=== PATIENT | male | born 1945 | race Caucasian/White ===

== ENCOUNTER → 2024-03-05 | Outpatient (CLI) | payer MEDICARE, SELFPAY ==
[2024-03-05 15:08] LABS: Absolute Lymphocyte Count 1.98 X10^3/uL (0.83-4.51); Basophil# 0.05 X10^3/uL; Basophil% 0.6 % (0-1); Eosinophil# 0.08 X10^3/uL; Hematocrit 39.6 % (40-54); Hemoglobin 13.4 g/dL (13.0-16.5); Lymphocyte # 1.98 X10^3/ul (0.83-4.51); Lymphocyte % 25.5 % (19-41); Mean Corp Hgb Conc 33.8 g/dL (32-36); Mean Corpuscular Hgb 30.3 pg (27.0-32.0); Mean Corpuscular Volume 89.6 fL (80-94); Mean Platelet Vol. 9.8 fl (6.2-12.0); Monocyte# 0.63 X10^3/uL; Monocyte% 8.1 % (0-10); NRBC Flagged by Analyzer 0 % (0-5); Neutrophil # 5.01 X10^3/uL (2.7-7.7); Neutrophil % 64.5 % (47-70); Platelet Count 176 K/mm3 (150-450); RBC Distribution Width CV 12.3 % (11.6-14.6); RBC Distribution Width SD 40.4 fl (35.1-43.9); Red Blood Count 4.42 M/mm3 (4.6-6.2); White Blood Count 7.8 K/mm3 (4.4-11.0)
[2024-03-05 15:17] LABS: International Normalized Ratio 2.4; Prothrombin Time (Protime)PT. 26.1 SECONDS (11.7-14.9)
[2024-03-05 15:35] LABS: ALB/GLOB Ratio 0.8 RATIO (0.9-2.4); AST(SGOT) 27 U/L (15-37); Alanine Aminotransfer ALT/SGPT 29 U/L (16-61); Albumin, Serum 3.5 g/dL (3.2-5.0); Alkaline Phosphatase 99 U/L (45-117); Anion Gap 6 (5-15); BUN 17 mg/dL (7-18); BUN/Creat Ratio 19.7 RATIO (10-20); Calcium,Total 9.2 mg/dL (8.5-10.1); Chloride 105 mmol/L (98-107); Creatinine, Serum 0.86 mg/dL (0.70-1.30); EST Glomerular Filtration Rate 91 mL/min (>60); Est Glom Filt Rate - Afr Amer 110 mL/min (>60); Globulin 4.4 g/dL (2.2-4.2); Glucose 142 mg/dL (74-106); Potassium 4.1 mmol/L (3.5-5.1); Protein, Total 7.9 g/dL (6.4-8.2); Sodium Level 138 mmol/L (136-145)
== END | disposition home or self-care (01) ==
PROVIDERS: Referring Provider Podiatrist; Visit Provider Podiatrist
DX: L03.116 Cellulitis of left lower limb (principal)
CPT/HCPCS: 36415; 80053; 85025; 85610

== ENCOUNTER → 2024-03-06 | Outpatient (CLI) | payer MEDICARE, SELFPAY | END | disposition home or self-care (01) | PROVIDERS: Referring Provider Podiatrist; Visit Provider Podiatrist | DX: L03.116 Cellulitis of left lower limb (principal) | CPT/HCPCS: 87070; 87075; 87077; 87186; 87205 ==

== ENCOUNTER 2024-03-17 15:10 | Emergency (ER) | payer MEDICARE, SELFPAY ==
[2024-03-17 15:23] VITALS: BP 149/77; PULSE 81; RESP 18; TEMP 36.9; O2SAT 95; BMI 26.3
--- NOTE | 2024-03-17 19:37 | ED.RN ---
RN into room to assess pt. Pt stated, I dont want to tell my story to you and then tell the doctor. Ill just save it for [facility] doctor. RN explained that she is part of the care team and would like to know pt condition so she can properly care for pt. Pt refusing vitals.
--- NOTE | 2024-03-17 20:22 | ED.VIS.LOWEX ---
HPI History of Present Illness Chief Complaint: Lower Extremity Injury Informant: patient Narrative Narrative: Presents for evaluation injury to his left lower extremity. He initially states 13 days ago he had an injury to his left great toe with a wound. He is diabetic. He is followed by Dr. Sharpe. He is started on a week of antibiotics for which he took. He states within 2 days his legs a lot more swollen however during that time he had a fall in the yard injuring his groin and hamstring. He is on warfarin for history of paroxysmal A-fib he has had cardiac history. There was bruising to his inner thigh went up to his scrotum. This is slowly improving. He has seen his podiatry team with Dr. prakash involved also. He is currently on second round of antibiotics with now improving symptoms. He is followed up today was told he can stop the antibiotics as his toe looks better. Slight swelling to his foot. He presents to the ED asking for second opinion if he can continue his antibiotic at least for another 3 days it was plan for 14 days. He has no fevers no drainage. Prior similar symptoms: No PFSH PFSH Home Medications ?Medication ?Instructions ?Recorded ?Last Taken ?Type Cholecalciferol (Vitamin D3) 5,000 unit PO DAILY 03/31/17 Unknown History [Vitamin D3] Losartan/Hydrochlorothiazide 1 tab PO DAILY 03/31/17 Unknown History [Hyzaar 100-12.5 Tablet] amiodarone 100 mg tablet 100 mg PO QODAY 03/31/17 Unknown History amlodipine 5 mg tablet 5 mg PO DAILY 03/31/17 Unknown History ascorbic acid (vitamin C) 1,000 mg 3,000 mg PO DAILY 03/31/17 Unknown History tablet (Vitamin C) aspirin 81 mg chewable tablet 81 mg PO DAILY@0800 03/31/17 Unknown History atorvastatin 20 mg tablet 20 mg PO QHS 03/31/17 Unknown History cephalexin 500 mg capsule 500 mg PO Q6 ##40 03/31/17 Unknown Rx multivitamin with folic acid 400 1 tab PO DAILY 03/31/17 Unknown History mcg tablet (Thera) warfarin 5 mg tablet (Jantoven) 5 mg PO DAILY 03/31/17 Unknown History amoxicillin 875 mg-potassium 1 tab PO BID #28 tabs 03/05/24 Unknown Rx clavulanate 125 mg tablet ciprofloxacin HCl 750 mg tablet 750 mg PO BID #28 tabs 03/05/24 Unknown Rx amoxicillin 875 mg-potassium 1 tab PO BID #14 tabs 03/10/24 Unknown Rx clavulanate 125 mg tablet ciprofloxacin HCl 750 mg tablet 750 mg PO BID #14 tabs 03/10/24 Unknown Rx Allergy/AdvReac Type Severity Reaction Status Date / Time No Known Allergies Allergy Verified 03/17/24 15:23 Social History Smoking Status: Never smoker ROS ROS ED Constitutional Constitutional ED: Denies chills, fever(s) or sweats Eyes Eyes: Denies change in vision ENT ENT ED: Denies dysphagia or sore throat Cardiovascular Cardiovascular: Denies chest pain, leg edema, palpitations or racing heartbeat Respiratory/Chest Respiratory/Chest: Denies cough, dyspnea or dyspnea on exertion Gastrointestinal Gastrointestinal: Denies abdominal pain, diarrhea, nausea or vomiting Genitourinary Genitourinary ED: Denies dysuria, hematuria or urinary frequency Musculoskeletal Musculoskeletal: Reports extremity pain; Denies back pain or neck pain Integumentary Denies rash or wounds Neurologic Neurologic: Denies headache(s), paresthesias or weakness EXAM Physical Exam Const Vital Signs: 03/17/24 15:23 03/17/24 20:30 Temperature 98.5 F 97.6 F L Temperature Source Temporal Pulse Rate 81 80 Respiratory Rate 18 18 Blood Pressure 149/77 H 144/80 H Blood Pressure Mean 101 101 Pulse Ox 95 95 Oxygen Delivery Method Room Air Positive well nourished and well developed General Appearance ED: well developed and NAD HEENT Reports moist mucous membranes normocephalic and atraumatic Eyes EOMs intact bilaterally and conjunctivae normal General Eye ED: Yes normal appearance of both eyes Neck no lymphadenopathy and supple General: Negative for tenderness Chest Wall Chest: Negative for tenderness Resp normal respiratory effort and normal air movement Effort and Inspection: symmetric chest movement; Negative for respiratory distress Cardio regular rate, regular rhythm and no murmurs Peripheral Pulses: pulses 2+ throughout GI normal to inspection, nondistended, normoactive bowel sounds and non-tender Palpation: Negative for guarding or rebound tenderness present Narrative: Residual ecchymosis lower scrotum with no swelling or pain. Back/Spine no CVA tenderness and no thoracic nor lumbar tenderness Extremity normal to inspection Extremity Narrative: Early ecchymosis upper groin and thigh region. There was more ecchymosis region medial aspect of the lower thigh more laterally at the hamstring region. Soft compartments. Minimal swelling of the lower leg and foot. His wound from his toe was closed over there is no drainage no streaking. Neuro oriented x3 and no sensory deficits noted Sensorium / Orientation: awake and alert Skin no rashes or lesions noted and no wounds MDM MDM MDM Narrative Medical decision making narrative: Interventions / MDM: Differential diagnosis: Hamstring strain, ecchymosis, healed toe ulcer Diagnosis considered but do not suspect: No clinical compartment syndrome. DVT however patient on chronic anticoagulation My EKG interpretation: N/A Imaging independently reviewed and interpreted by myself: N/A External documents reviewed: N/A Test considered but not ordered:N/A ED course: Patient able to ambulate soft compartments. From his history reports ecchymosis and symptoms are slowly improving up in his thigh. Masoud wrap will be provided to help with comfort. First toe is healed over is afebrile no drainage. He is planned course for antibiotics for 14 days he is on day 5. Discussed his choice if he wants to take for additional 3 days with his history. I am not opposed to this. He is more reassured. Show Masoud wrap to his foot up his leg to help with swelling he will continue to elevate. He will follow-up with his doctors as an outpatient. All questions were answered. Re-evaluation: stable Disposition discussed with patient/family/significant other: Patient Case discussed with consulting clinician: N/A This note was generated with [employer] dictation software. It may contain incorrect words, spelling, and punctuation that were not noted in checking the note before signing. Discharge Plan Triage Chief Complaint: Lower Extremity Injury ED Provider: Jose Oliva Dx/Rx/DC Orders Clinical Impression: Hamstring muscle strain, Left leg swelling, Chronic anticoagulation Instructions: Treating?Strains and Sprains, ED Muscle Strain, Extremity Prescriptions: No Action ascorbic acid (vitamin C) [Vitamin C] 1,000 MG tablet 3,000 mg PO DAILY atorvastatin 20 MG tablet 20 mg PO QHS amlodipine 5 MG tablet 5 mg PO DAILY warfarin [Jantoven] 5 MG tablet 5 mg PO DAILY aspirin 81 MG tablet,chewable 81 mg PO DAILY@0800 amiodarone 100 MG tablet 100 mg PO QODAY multivitamin with folic acid [Thera] 1 TABLET tablet 1 tab PO DAILY Cholecalciferol (Vitamin D3) [Vitamin D3] 5,000 UNIT capsule 5,000 unit PO DAILY Losartan/Hydrochlorothiazide [Hyzaar 100-12.5 Tablet] 1 TAB tablet 1 tab PO DAILY cephalexin 500 MG capsule 500 mg PO Q6 Qty: 40 0RF amoxicillin-pot clavulanate 875-125 mg tablet 1 tab PO BID Qty: 28 0RF ciprofloxacin HCl 750 mg tablet 750 mg PO BID Qty: 28 0RF amoxicillin-pot clavulanate 875-125 mg tablet 1 tab PO BID Qty: 14 0RF ciprofloxacin HCl 750 mg tablet 750 mg PO BID Qty: 14 0RF Primary Care Provider: DONALD BELL Referrals: DONALD BELL [Other] - 1 Week Activity Restrictions/Additional Instructions: Use Masoud wrap for support may elevate to help with swelling. Continue Tylenol up to 1 g every 6 hours as needed. Your symptoms from a history of slowly improving. Follow-up with your doctors. Print Language: Cam[place]onian Disposition Disposition: Home, Self Care Discharge Date/Time: 03/17/24 20:32
[2024-03-17 20:30] VITALS: BP 144/80; PULSE 80; RESP 18; TEMP 36.4; O2SAT 95
== END 2024-03-17 20:32 | disposition home or self-care (01) ==
PROVIDERS: Emergency Provider Emergency Medicine; Visit Provider Emergency Medicine
DX: S76.312A Strain of muscle, fascia and tendon of the posterior muscle group at thigh level, left thigh, initial encounter (principal); I48.0 Paroxysmal atrial fibrillation; E11.9 Type 2 diabetes mellitus without complications; Z79.01 Long term (current) use of anticoagulants; S70.10XA Contusion of unspecified thigh, initial encounter; M79.89 Other specified soft tissue disorders; W19.XXXA Unspecified fall, initial encounter
CPT/HCPCS: 99282